=== PATIENT | male | born 1995 | race Caucasian/White ===

== ENCOUNTER 2018-11-06 12:53 | Emergency (ER) | payer BC, SELFPAY ==
[2018-11-06 12:53] VITALS: BP 145/95; PULSE 92; RESP 18; TEMP 37.1; O2SAT 98; BMI 25.1
--- NOTE | 2018-11-06 13:32 | ED.DCSUM_ITS ---
History of Present Illness Chief Complaint: Headache Detail of Chief Complaint: After blunt trauma Informant: Patient, Family Onset: - - Patient was vomiting. He struck his head on a cupboard. This occurred on Monday. Timing: Continuous Quality: Bilateral posterior head Location: Posterior head/posterior neck Current Severity: Mild Maximum Severity: Moderate Worsened by: Light, activity Relieved by: Nothing Associated Symptoms: Confusion, trouble sleeping, blurred vision, difficulty concentrating Narrative: Patient is a 22-year-old male who was sick this past week and. While vomiting he struck his head on a cupboard. He had no loss of conscious. He is not days. He has vomited once since. He does complain of thirst and dry mouth. He denies double vision or loss of vision. Denies ringing in his ears. He denies trouble with speech or swallowing. He denies cardiac respiratory symptoms. He denies rash. He denies paresthesia, anesthesia or motor weakness. He has no past history of concussion. He has no past history of vascular headache. Prior similar symptoms: No Recent Illness/Hospitalization: Yes - GI nausea and vomiting Past Medical History - Allergies and Home Meds Allergies/Adverse Reactions: Allergies No Known Allergies Allergy (Verified 11/06/18 12:55) Primary Care Physician: Emir Posada DO [Primary Care Provider] - Prior records reviewed: Yes - History of depression Lives: Spouse/ Significant Other Smoking Status: Never smoker Alcohol: None Review of Systems General: Reports: Malaise. Denies: Chills, Fever, Sweats - Is Eyes: Reports: Visual changes - bilaterally, Blurred Vision - bilaterally. Denies: Diplopia ENT: Denies: Bilateral ear pain, Rhinorrhea, Sore throat Cardiovascular: Denies: Chest pain, Palpitations Respiratory: Denies: Dyspnea, Cough, Dyspnea on exertion Gastrointestinal: Reports: Nausea, Vomiting. Denies: Abdominal pain, Diarrhea, Melena, Hematochezia Genitourinary: Denies: Dysuria, Hematuria, Frequency Musculoskeletal: Reports: Neck pain. Denies: Myalgias, Arthralgias, Back pain, Swelling Skin: Denies: Rash, Wounds Neurological: Reports: Headache. Denies: Weakness, Parasthesia, Numbness Psych: Reports: Depression Hematologic: Denies: Easy bruising, Easy bleeding Allergy: Denies: Uticaria Physical Exam Vital Signs/Narrative: Vital Signs Temp Pulse Resp BP Pulse Ox 11/06/18 12:53 98.7 F 92 18 145/95 H 98 Inital Vital Signs reviewed: Yes General: Well nourished, Well developed, No Acute Distress Head: Normocephalic, Trauma - There is a 2-3 mm abrasion forehead/hairline Eyes: Perrl, EOMI, - - There are no subconjunctival hemorrhages or conjunctival petechiae.. Negative for: Pale conjunctiva, Scleral icterus ENT: Moist mucous membranes, No rhinorrhea, TM's clear, - - There are no clinical findings of basal skull fracture. Neck: Supple, Nontender, No lymphadenopathy, No JVD Cardiovascular: Regular rate, Regular rhythm, No murmurs, Normal S1, Normal S2 Respiratory: No distress, CTA bilaterally, Chest nontender Back: Nontender, Normal Inspection Extremities: Nontender, No edema Skin: Normal color, No rash, Trauma - Abrasion forehead/hairline Neurological: Alert, Oriented x3, Cranial nerves II-XII grossly intact, Normal Strength, Normal Sensation, Normal DTR, Normal Gait Psychological: Normal affect, Normal Mood Diagnostic/Tx/Re-eval - Medical Decision Making Based on history, normal physical exam and specifically neuro exam per the [place] CT head rule and the [place] CT rule radiologic imaging is not indicated nor was it obtained. Patient was informed he would need to contact his primary care physician for FMLA form. ED Disposition - Plan for ED Patient: Disposition: Home or Assisted Living Diagnosis: Concussion without loss of consciousness, initial encounter, Nausea and vomiting in adult Instructions: ED Concussion Prescriptions: Ondansetron [Zofran Odt] 4 mg PO Q8H PRN PRN #10 tab PRN Reason: Nausea Referrals: Emir Posada, DO [Primary Care Provider] - As Needed Additional Instructions: You will need to contact Dr. Emir Posada to complete FMLA form for work.
== END 2018-11-06 13:51 | disposition home or self-care (01) ==
PROVIDERS: Emergency Provider Emergency Medicine
DX: S06.0X0A Concussion without loss of consciousness, initial encounter (principal); W22.8XXA Striking against or struck by other objects, initial encounter; Y93.9 Activity, unspecified; Y92.89 Other specified places as the place of occurrence of the external cause; Y99.9 Unspecified external cause status; R11.2 Nausea with vomiting, unspecified
CPT/HCPCS: 99282

== ENCOUNTER 2021-04-16 12:40 | Outpatient (RCR) | payer BC, SELFPAY | END 2021-05-21 23:59 | LOC: IMMUN 12:40 | PROVIDERS: Referring Provider Family Medicine; Visit Provider Family Medicine | DX: Z23 Encounter for immunization (principal) ==

== ENCOUNTER → 2023-01-26 | Outpatient (CLI) | payer BC, SELFPAY ==
[2023-01-26 17:46] LABS: Absolute Lymphocyte Count 2.16 X10^3/uL (0.83-4.51); Absolute Neutrophil Count 5.1 X10^3/uL (2.0-7.7); Basophil# 0.03 X10^3/uL; Basophil% 0.4 % (0-1); Eosinophil# 0.08 X10^3/uL; Hematocrit 49.6 % (40-54); Hemoglobin 16.3 g/dL (13.0-16.5); Lymphocyte # 2.16 X10^3/ul (0.83-4.51); Lymphocyte % 27.6 % (19-41); Mean Corp Hgb Conc 32.9 g/dL (32-36); Mean Corpuscular Hgb 30.2 pg (27.0-32.0); Mean Platelet Vol. 10.1 fl (6.2-12.0); Monocyte# 0.41 X10^3/uL; Monocyte% 5.2 % (0-10); NRBC Flagged by Analyzer 0 % (0-5); Neutrophil # 5.11 X10^3/uL (2.7-7.7); Neutrophil % 65.4 % (47-70); Platelet Count 239 K/mm3 (150-450); RBC Distribution Width SD 40.5 fl (35.1-43.9); Red Blood Count 5.39 M/mm3 (4.6-6.2); White Blood Count 7.8 K/mm3 (4.4-11.0)
[2023-01-26 18:30] LABS: ALB/GLOB Ratio 1.2 RATIO (0.9-2.4); AST(SGOT) 21 U/L (15-37); Alanine Aminotransfer ALT/SGPT 29 U/L (16-61); Albumin, Serum 4.6 g/dL (3.2-5.0); Alkaline Phosphatase 51 U/L (45-117); Anion Gap 7 (5-15); BUN 19 mg/dL (7-18); Calcium,Total 10.5 mg/dL (8.5-10.1); Chloride 99 mmol/L (98-107); Creatinine, Serum 1.12 mg/dL (0.70-1.30); EST Glomerular Filtration Rate 82 mL/min (>60); Est Glom Filt Rate - Afr Amer 100 mL/min (>60); Glucose 52 mg/dL (74-106); Lipase 27 U/L (13-75); Protein, Total 8.6 g/dL (6.4-8.2); Sodium Level 137 mmol/L (136-145)
== END | disposition home or self-care (01) ==
LOC: MFPLAB 16:59
PROVIDERS: Visit Provider Nurse Practitioner Family
DX: R10.11 Right upper quadrant pain (principal)
CPT/HCPCS: 36415; 80053; 83690; 85025

== ENCOUNTER → 2023-02-11 | Outpatient (CLI) | payer BC, SELFPAY ==
--- NOTE | 2023-02-11 07:45 | US_ITS ---
EXAM: US abdomen, limited, right upper quadrant. HISTORY: RUQ PAIN TECHNIQUE: US Abdomen RUQ (limited) COMPARISON: None. LIMITATIONS: None. LIVER Size: Normal. Right hepatic lobe measures 15.5 cm in length. Masses: None. Contour: Normal. Echotexture: Normal. Bile ducts: Normal. Portal veins: Normal. Normal hepatopedal flow. Hepatic veins are also patent. GALLBLADDER Size: Elongated gallbladder measuring 9.1 x 2.6 cm in diameter. Stones/sludge: None. Small gallbladder polyp is identified, measuring 4 x 3 x 2 mm in diameter. Wall thickness: Normal. Gallbladder wall measures 1.2 mm in thickness. Pericholecystic fluid: None. Sonographic Dominguez sign: Negative. EXTRAHEPATIC BILE DUCTS: Normal. Common bile duct measures 3.3 mm in diameter. RIGHT KIDNEY: Normal. Right kidney measures 10.3 cm in length. No hydronephrosis. ASCITES: None. PLEURAL EFFUSIONS: None. OTHER: Visualized pancreas is unremarkable. CONCLUSION: Small gallbladder polyp. Otherwise negative. No gallstones or biliary ductal dilatation. Electronically Signed: Kamar Feng MD at 20:32 EDT , US/Abdomen Limited IMPRESSION: undefined
== END | disposition home or self-care (01) ==
PROVIDERS: PCP Family Medicine; Referring Provider Nurse Practitioner Family; Visit Provider Nurse Practitioner Family
DX: R10.11 Right upper quadrant pain (principal)
CPT/HCPCS: 76705

== ENCOUNTER 2023-03-13 13:36 | Emergency (ER) | payer BC, SELFPAY ==
[2023-03-13 13:37] VITALS: BP 133/92; PULSE 73; RESP 18; TEMP 36.4; O2SAT 99; BMI 22.8
--- NOTE | 2023-03-13 14:20 | EKG12_ITS ---
Test Reason : CHEST PAIN Blood Pressure : / mmHG Vent. Rate : 070 BPM Atrial Rate : 070 BPM P-R Int : 142 ms QRS Dur : 092 ms QT Int : 388 ms P-R-T Axes : 076 075 069 degrees QTc Int : 419 ms Normal sinus rhythm Normal ECG Confirmed by MENDOZA BAE, DAVID ([id number]), scientific publications editor YURI OLSON ([id number]) on 03/15/2023 9:24:58 AM Referred By: Confirmed By:DAVID DONALDSON MD
--- NOTE | 2023-03-13 14:20 | ED.VIS.CHEST ---
HPI History of Present Illness Chief Complaint: Chest Pain Detail of Chief Complaint: Chest discomfort since last evening Informant: patient Narrative Narrative: Patient presents with chest discomfort started last evening about half an hour after taking his trazodone. Patient states has been taking trazodone for years. Patient states that he started feeling his heart was racing and he was going about 150 bpm. Patient continues to just not feel well throughout the day today and describe some chest discomfort and pressure. He describes numbness and tingling in both hands. He feels like he cannot get a good breath in. Patient does take Effexor for anxiety. He denies any increased stressors at home or work. Patient denies recent illness. He denies recent travel or surgery. His father did have a CABG at age 57. PFSH PFSH Medical History no medical history Home Medications ondansetron 4 mg disintegrating tablet 4 mg PO Q8H PRN PRN Nausea #10 tabs 11/06/18 [Rx Last Taken Unknown] trazodone 100 mg tablet 100 mg PO QHS 11/06/18 [History Last Taken Unknown] Allergy/AdvReac Type Severity Reaction Status Date / Time No Known Allergies Allergy Verified 03/13/23 13:37 Surgical History no surgical history Social History Smoking Status: Never smoker ROS ROS ED Review of Systems ROS Unobtainable: other Constitutional Constitutional ED: Reports lethargy; Denies chills, fever(s), sweats or weight loss Eyes Eyes: Denies blurry vision, change in vision or diplopia ENT ENT ED: Denies rhinorrhea or sore throat Cardiovascular Cardiovascular: Reports chest pain and racing heartbeat; Denies orthopnea Respiratory/Chest Respiratory/Chest: Reports dyspnea; Denies cough, dyspnea on exertion, orthopnea or sputum Gastrointestinal Gastrointestinal: Denies abdominal pain, diarrhea, nausea or vomiting Genitourinary Genitourinary ED: Denies dysuria, hematuria or urinary frequency Musculoskeletal Musculoskeletal: Denies arthralgias, back pain, myalgias or neck pain Integumentary Denies abscess, Abrasions or rash Neurologic Neurologic: Reports paresthesias; Denies headache(s) or weakness Psychiatric Psychiatric: Denies anxiety, depression or suicidal thoughts Endocrine Endocrinology: Denies polydipsia, polyphagia or polyuria Hematologic/Lymphatic Hematologic/Lymphatic: Denies easy bleeding, easy bruising or lymphadenopathy Allergic/Immunologic Allergic/Immunologic ED: Denies mouth swelling, tongue swelling or urticaria EXAM Physical Exam Const Vital Signs: 03/13/23 13:37 03/13/23 14:27 03/13/23 15:29 Temperature 97.5 F L Temperature Source Temporal Pulse Rate 73 Respiratory Rate 18 Blood Pressure 133/92 H 126/74 H Blood Pressure Mean 105 Pulse Ox 99 Oxygen Delivery Method Room Air Room Air Positive well nourished and well developed General Appearance ED: well developed and NAD HEENT Reports TM's clear and moist mucous membranes normocephalic and atraumatic; Negative for trauma or tenderness Tympanic Membrane ED: Yes TM's clear Eyes PERRL and EOMs intact bilaterally General Eye ED: Negative for pale conjunctiva or scleral icterus Neck no lymphadenopathy, supple and no JVD General: Negative for tenderness Chest Wall inspection of chest normal and palpation of chest normal Chest: Negative for tenderness Resp normal respiratory effort and clear to auscultation bilaterally Effort and Inspection: Negative for respiratory distress or pain with movement Auscultation: Negative for rhonchi, wheezes or diminished lung sounds Cardio regular rate, regular rhythm, S1 normal heart sound, S2 normal heart sound and no murmurs Peripheral Pulses: pulses 2+ throughout GI normal to inspection, nondistended, normoactive bowel sounds, soft to palpation, non-tender, non-distended and no masses Back/Spine no CVA tenderness and no thoracic nor lumbar tenderness Extremity normal to inspection General Extremety ED: Negative for edema General Extremity: Negative for edema Neuro oriented x3, CN's II-XII intact bilaterally, no sensory deficits noted and gait normal Sensorium / Orientation: awake, alert, oriented to person, oriented to place and oriented to time Motor Exam: strength 5/5 throughout and strength abnormal Psych mental status grossly normal Skin no rashes or lesions noted and no wounds Heart Score History: Slightly/Non-Suspicious ECG: Normal Age: </= 45 years Risk Factors: 1 or 2 Risk Factors Troponin: </= Normal Limit Score: 1 MDM MDM MDM Narrative Medical decision making narrative: Patient presents with persistent chest discomfort since last evening. He does have history of anxiety. There is some family history of heart disease and that his father apparently had a CABG at the age of 57. Patient himself is not had any heart history. In the differential would be acute coronary syndrome versus anxiety reaction versus PE or pneumothorax or other process. An IV line established on arrival. Patient was given baby aspirin. EKG obtained on arrival showed a sinus rhythm with a ventricular rate of 70 bpm with no acute ST segment changes. CBC with differential showed normal white count of 6.6 with a hemoglobin of 16 and platelet count of 204. Chemistries unremarkable. Troponin was normal at 3. D-dimer was negative at less than 0.27. Chest x-ray 1 view obtained interpreted by myself as no evidence of acute disease process such as pneumothorax or infiltrate or other acute disease process. No evidence of widened mediastinum. Patient has a heart score of 1. Clinically looks well. He did not want anything for anxiety here. Clinically given his complaint and paresthesias and sensation of feeling like he cannot take a deep breath I suspect more likely this is anxiety related. Patient advised to follow-up with his primary care physician within the next 3 to 5 days. Patient advised to return if worsening pain, increasing shortness of breath, or condition should worsen anyway. Lab Data Attestation: I reviewed the patient's lab results. Labs: Laboratory Results - last 24 hr 03/13/23 14:35 WBC 6.6 RBC 5.30 Hgb 16.1 Hct 47.7 MCV 90.0 MCH 30.4 MCHC 33.8 RDW Std Deviation 38.8 RDW Coeff of Marcelle 11.9 Plt Count 204 MPV 9.6 Immature Gran % (Auto) 0.200 Neut % (Auto) 71.5 H Lymph % (Auto) 20.2 Wheeler % (Auto) 7.0 Eos % (Auto) 0.8 Baso % (Auto) 0.3 Absolute Neuts (auto) 4.7 Absolute Lymphs (auto) 1.33 Nucleated RBC % 0 D-Dimer Quant (PE/DVT) < 0.27 L Sodium 137 Potassium 3.4 L Chloride 101 Carbon Dioxide 30.0 Anion Gap 6 BUN 9 Creatinine 0.93 Estim Creat Clear Calc 123.39 Est GFR (MDRD) Af Amer 124 Est GFR (MDRD) Non-Af 102 BUN/Creatinine Ratio 9.7 L Glucose 92 Calcium 9.7 Troponin I High Sens 3 Radiography Diagnostic Testing: Clinical Impression(s) from Imaging Studies Chest X-Ray 03/13/23 14:40 IMPRESSION: Normal x-ray examination of the chest. Electronically Signed: Henri Gibson MD at 14:59 EDT , 1 view chest x-ray obtained interpreted by myself no evidence of infiltrate or pneumothorax. No evidence of widened mediastinum. Radiology in agreement. EKG Initial EKG: Attestation: I personally reviewed and interpreted this EKG as follows: Comments: Sinus rhythm with a rate of 70 bpm with no acute ST segment changes Discharge Plan Triage Chief Complaint: Chest Pain ED Provider: Shirley Roger Dx/Rx/DC Orders Clinical Impression: Anxiety, Chest pain Instructions: ED Anxiety Reaction, ED Chest Pain, Uncertain Cause Prescriptions: No Action trazodone 100 MG tablet 100 mg PO QHS Patient Comments: TAKE 1 TABLET BY MOUTH AT BEDTIME ondansetron 4 MG tablet 4 mg PO Q8H PRN PRN (Reason: Nausea) Qty: 10 0RF Primary Care Provider: Isi Fraga Referrals: Isi Fraga DO [Primary Care Provider] - 3-5 Days Disposition Disposition: Home, Self Care Discharge Date/Time: 03/13/23 15:38
[2023-03-13] MEDS: 0.9% Normal Saline 1,000 ML 150 ML IV (14:37)
[2023-03-13] MEDS: Aspirin 81 MG TAB.CHEW 324 MG PO (14:37)
--- NOTE | 2023-03-13 14:40 | RAD_ITS ---
STUDY: X-RAY CHEST REASON FOR EXAM: Male, 27 years old. Chest pain TECHNIQUE: Single AP portable view of the chest. COMPARISON: None. FINDINGS: The lungs are clear and expanded. There is no demonstrated pleural abnormality. Normal size heart. Normal mediastinum and jeanne. Normal visualized pulmonary arteries. Normal visualized aortic arch and descending thoracic aorta. Normal visualized thoracic spine. Normal visualized ribs, clavicles, and shoulders. There is no demonstrated abnormality of the visualized soft tissue structures of the upper abdomen. RAD/Chest 1 View (Portable) IMPRESSION: Normal x-ray examination of the chest. Electronically Signed: Henri Gibson MD at 14:59 EDT ,
[2023-03-13 14:41] LABS: Absolute Lymphocyte Count 1.33 X10^3/uL (0.83-4.51); Absolute Neutrophil Count 4.7 X10^3/uL (2.0-7.7); Basophil# 0.02 X10^3/uL; Basophil% 0.3 % (0-1); Eosinophil# 0.05 X10^3/uL; Eosinophils% 0.8 % (0-5); Hematocrit 47.7 % (40-54); Hemoglobin 16.1 g/dL (13.0-16.5); Lymphocyte # 1.33 X10^3/ul (0.83-4.51); Lymphocyte % 20.2 % (19-41); Mean Corp Hgb Conc 33.8 g/dL (32-36); Mean Corpuscular Hgb 30.4 pg (27.0-32.0); Mean Platelet Vol. 9.6 fl (6.2-12.0); Monocyte# 0.46 X10^3/uL; NRBC Flagged by Analyzer 0 % (0-5); Neutrophil # 4.71 X10^3/uL (2.7-7.7); Neutrophil % 71.5 % (47-70); Platelet Count 204 K/mm3 (150-450); RBC Distribution Width CV 11.9 % (11.6-14.6); RBC Distribution Width SD 38.8 fl (35.1-43.9); White Blood Count 6.6 K/mm3 (4.4-11.0)
[2023-03-13 14:54] LABS: D-Dimer Quantitative (DVT/PE) < 0.27 FEU/ug/m (0.27-0.49)
[2023-03-13 14:58] LABS: Anion Gap 6 (5-15); BUN 9 mg/dL (7-18); BUN/Creat Ratio 9.7 RATIO (10-20); Calcium,Total 9.7 mg/dL (8.5-10.1); Chloride 101 mmol/L (98-107); Creatinine, Serum 0.93 mg/dL (0.70-1.30); EST Glomerular Filtration Rate 102 mL/min (>60); Est Glom Filt Rate - Afr Amer 124 mL/min (>60); Estimated Creatinine Clearance 123.39 ml/min; Glucose 92 mg/dL (74-106); Potassium 3.4 mmol/L (3.5-5.1); Sodium Level 137 mmol/L (136-145); Troponin-I HS (w/2H Reflex) 3 pg/mL (3.0-78.0)
[2023-03-13 15:29] VITALS: BP 126/74
[2023-03-13 16:38] LABS: Reflex Troponin-HS? (from REC) Y
== END 2023-03-13 15:38 | disposition home or self-care (01) ==
PROVIDERS: Emergency Provider Emergency Medicine; PCP Family Medicine; Visit Provider Emergency Medicine
DX: R07.9 Chest pain, unspecified (principal); F41.9 Anxiety disorder, unspecified; Z79.899 Other long term (current) drug therapy
CPT/HCPCS: 71045; 80048; 84484; 85025; 85379; 93005; 96360; 99285

== ENCOUNTER 2023-09-05 10:26 | Emergency (ER) | payer BC, SELFPAY ==
[2023-09-05 10:26] VITALS: BP 182/103; PULSE 107; RESP 16; TEMP 36; O2SAT 100; BMI 25.7
--- NOTE | 2023-09-05 11:15 | EX.ED.DYSGE1 ---
HPI History of Present Illness Chief Complaint: General Illness Narrative Narrative: 27-year-old male presenting with cough and congestion. He states he has a history of undiagnosed asthma but he is on Montelukast. Denies fevers or chills. Denies chest pain. He has mild dyspnea. States he left work today because he was feeling generally unwell, however he states he does not feel sick. Denies nausea or vomiting. Patient states has not tried anything else other than his Montelukast for cough. He does admit that he has Tessalon Perles at home and has not tried these. PFSH PFSH Home Medications ondansetron 4 mg disintegrating tablet 4 mg PO Q8H PRN PRN Nausea #10 tabs 11/06/18 [Rx Last Taken Unknown] trazodone 100 mg tablet 100 mg PO QHS 11/06/18 [History Last Taken Unknown] guaifenesin 1,200 mg tablet, extended release 12 hr 1,200 mg PO BID #20 tabs 09/05/23 [Rx Last Taken Unknown] Allergy/AdvReac Type Severity Reaction Status Date / Time No Known Allergies Allergy Verified 03/13/23 13:37 Social History Smoking Status: Never smoker ROS ROS ED Constitutional Constitutional ED: Denies chills, fever(s) or sweats Eyes Eyes: Denies blurry vision or change in vision ENT ENT ED: Denies ear pain or sore throat Cardiovascular Cardiovascular: Denies chest pain, palpitations or racing heartbeat Respiratory/Chest Respiratory/Chest: Reports cough and dyspnea; Denies sputum Gastrointestinal Gastrointestinal: Denies abdominal pain, constipation, diarrhea, nausea or vomiting Genitourinary Genitourinary ED: Denies dysuria, hematuria or urinary frequency Musculoskeletal Musculoskeletal: Denies arthralgias, myalgias or neck pain Integumentary Denies abscess, Abrasions or rash Neurologic Neurologic: Denies headache(s), paresthesias or weakness Psychiatric Psychiatric: Denies anxiety, depression, suicidal ideation or suicidal thoughts Endocrine Endocrinology: Denies polydipsia or polyuria EXAM Physical Exam Const Vital Signs: 09/05/23 10:26 09/05/23 10:26 Temperature 96.8 F L Temperature Source Temporal Pulse Rate 107 H Respiratory Rate 16 Respiratory Pattern Normal Blood Pressure 182/103 H Blood Pressure Mean 129 Pulse Ox 100 Oxygen Delivery Method Room Air Positive well nourished General Appearance ED: NAD; Negative for pallor HEENT Reports moist mucous membranes Eyes PERRL and EOMs intact bilaterally Neck no lymphadenopathy Chest Wall inspection of chest normal Resp normal respiratory effort and clear to auscultation bilaterally Auscultation: Negative for rales, rhonchi or wheezes Cardio regular rate and regular rhythm Extremity normal to inspection General Extremety ED: Yes edema General Extremity: edema Neuro oriented x3 and CN's II-XII intact bilaterally Sensorium / Orientation: alert Motor Exam: strength 5/5 throughout Psych mental status grossly normal Skin no rashes or lesions noted and no wounds General Skin Exam: Negative for jaundice or pallor MDM MDM MDM Narrative Medical decision making narrative: Patient presented with very mild symptoms of cough and congestion which started this morning. He states he has Tessalon Perles at home but did not try these. He is on Montelukast at home for unknown formally diagnosed asthma. He is not wheezing on examination. Does not albuterol. Well-appearing with normal exam. Will test him for COVID, influenza, RSV. Offered to give him Tessalon Perles but he states he had some at home and he does not want any here. Offered a chest x-ray but the patient declines. Offered work note for the patient but he states he took personal time. Viral testing was negative. Patient will be given Mucinex for home. He has Tessalon Perles and return precautions were discussed. Impression: 1. Cough Discharge Plan Triage Chief Complaint: General Illness ED Provider: Tim Zimmerman Dx/Rx/DC Orders Prescriptions: New guaifenesin 1,200 mg tablet extended release 12hr 1,200 mg PO BID Qty: 20 0RF No Action trazodone 100 MG tablet 100 mg PO QHS Patient Comments: TAKE 1 TABLET BY MOUTH AT BEDTIME ondansetron 4 MG tablet 4 mg PO Q8H PRN PRN (Reason: Nausea) Qty: 10 0RF Primary Care Provider: Isi Fraga Referrals: Isi Fraga, [Primary Care Provider] - Disposition Disposition: Home, Self Care Capacity Legal Orthopaedic Doctor Reflex Medical hold order details:: IF a medical hold is selected below, a suggested order for a MEDICAL HOLD will reflex upon signing the document. Next of kin: [place] law dictates a PRIORITY LIST for identifying legal decision-maker/legal next of kin in the following order (LNOK): 1st: The patient?s legal guardian, if any 2nd: The patient's spouse (if status is questionable, consult Risk Management) 3rd: The patient?s adult child(nemesio) (majority, if multiple children) 4th: The patient?s parents 5th: The patient?s adult siblings (majority, if multiple children siblings)
--- OUTSIDE RECORDS SUMMARY | 2023-09-05 12:30 | XMS RPT_ITS | CCD ---
Author Name Unknown Address [address] [place] [address] [address] [place] [address] Organization [facility] Care Team Providers Care Community Services Manager Name Role Phone Free, Text Entry Unavailable Unavailable Yanet White Unavailable Unavailable DR JAKOB SWEET DO Primary Care Physician [phone] Medications Current Medications Medication Drug Class(es) Dates Sig (Normalized) Sig (Original) escitalopram 10 mg oral tablet (1 source) Serotonin Reuptake Inhibitor Start: 06-03-2021 Lexapro 10 mg oral tablet Dose : 10 mg = 1 tab(s), Oral, qDay, # 90 tab(s), 1 Refill(s), Pharmacy: [facility]/pharmacy #[id number], 177, cm, 06/03/21 15:46:00 EDT, Height, kg, 06/03/21 15:46:00 EDT, Dosing Weight Start Date: 06/03/21 Status: Ordered herbal/nutritional product (1 source) Start: 09-10-2020 herbal/nutritional product 0 Refill(s) Start Date: 09/10/20 Status: Ordered nitrofurantoin, macrocrystals 25 mg / nitrofurantoin, monohydrate 75 mg oral capsule (1 source) Nitrofuran Antibacterial Start: 05-29-2021 End: 06-02-2021 take 1 capsule by mouth twice daily at mealtime Macrobid 100 mg oral capsule ; 1 cap(s) orally 2 times a day Quantity: 10 Refills: 0 Ordered: 29-May-2021 Yanet White Start: 29-May-2021 End: 02-Jun-2021 Generic Substitution Allowed Comments: Finish all this medication unless otherwise directed by prescriber.May discolor urine or feces.Take with food or milk. Completed/Discontinued Medications Medication Drug Class(es) Dates Sig (Normalized) Sig (Original) fluconazole 150 mg oral tablet (1 source) Azole Antifungal Start: 05-29-2021 End: 05-29-2021 take 1 tablet by mouth once Diflucan 150 mg oral tablet ; 1 tab(s) orally once Quantity: 1 Refills: 0 Ordered: 29-May-2021 Yanet White Start: 29-May-2021 End: 29-May-2021 Generic Substitution Allowed Comments: Do not take this drug if you are .Finish all this medication unless otherwise directed by prescriber. Problems Problem Classification Problem Date Documented Da te Episodic/Chronic Abdominal pain (1 source) Abdominal pain 02-19-2021 Episodic Alcohol-related disorders (1 source) Binge drinker 08-06-2020 Chronic Anxiety disorders (2 sources) Anxiety disorder; Translations: [Panic attack] 04-12-2019 Chronic Delirium, dementia, and amnestic and other cognitive disorders (1 source) Postconcussion syndrome 04-12-2019 Chronic Genitourinary symptoms and ill-defined conditions (4 sources) Urinary symptoms ; Translations: [Dysuria] 05-29-2021 Episodic Results Test Name Value Interpretation Reference Range Facil ity Vital Signs Date Time Vital Sign Value Performing Clinician Facility 05-29-2021 10:15-0400 Body height 177.8 cm Text Entry Free [facility] 05-29-2021 10:15-0400 Body temperature 97.16 [degF] Text Entry Free [facility] 05-29-2021 10:15-0400 Diastolic blood pressure 77 mm[Hg] Text Entry Free [facility] 05-29-2021 10:15-0400 Heart rate 73 /min Text Entry Free [facility] 05-29-2021 10:15-0400 Respiratory rate 16 /min Text Entry Free [facility] 05-29-2021 10:15-0400 SaO2% (BldA) [Mass fraction] 98 % Text Entry Free [facility] 05-29-2021 10:15-0400 Systolic blood pressure 123 mm[Hg] Text Entry Free [facility] Encounters Encounter Date Encounter Type Care Provider Facility Start: 06-03-2021 End: 06-07-[address] JAKOB SWEET DO [facility] Start: 05-29-2021 End: 05-29-2021 Emergency department patient visit Yanet White [facility] Start: 06-18-2018 End: 06-19-2018 Patient encounter procedure [facility] Procedures Date Procedure Procedure Detail Performing Clinician Adenoid excision DR JAKOB AVILEZ DO Tonsillectomy DR JAKOB DEY DO Immunizations Immunization Date Immunization Notes Care Provider Fa cility 07-22-2019 influenza virus vaccine, unspecified formulation DR JAKOB SWEET DO [facility] 04-11-2019 tetanus toxoid, redu debbie diphtheria toxoid, and acellular pertussis vaccine, adsorbed; Translations: [Boostrix (Tdap)] DR JAKOB SWEET DO [facility] Payers Date Payer Category Payer Policy ID Unknown ANTHEM\ANTHEM HMP Social History Date Type Detail Facility [facility] Tobacco smoking consumption unknown [facility] Start: 07-23-2019 Ex-smoker (finding) [facility] Former smokeless tobacco user, quit more than 30 days ago [facility] Sex Assigned At [facility] Clinical Note 06-06-2021 Note Date & Type Note Facility 06-06-2021 Note . MICRO - Microbiology PROCEDURE: Urine Culture [*1] SOURCE: Urine, Clean Catch BODY SITE: COLLECTED DATE/TIME: 06/03/2021 16:14 EDT RECEIVED DATE/TIME: 06/04/2021 14:32 EDT START DATE/TIME: 06/04/2021 14:32 EDT FREE TEXT SOURCE: FINAL REPORTS Final Report [] Verified Date/Time/Personnel: 06/06/2021 08:35 EDT No growth at 48 hours. PRELIMINARY REPORTS Preliminary Report [] Verified Date/Time/Personnel: 06/05/2021 11:10 EDT No growth to date Performing Locations *1: This test was performed at: [facility], [address] [place] [address], [id number] , [facility] ([place]) Evaluation + Plan note Radiology Note Date & Type Note Facility Evaluation + Plan note Future Appointments Appointment Date:07/06/2021 03:20:00 PM Scheduled Provider:JAKOB SWEET DO Location:[facility] Appointment Type:PC OV Future Scheduled TestsUS Abdomen Limited 04/17/21 [facility] Hospital course Narrative Note Date & Type Note Facility Hospital course Narrative No data available for this section [facility] Hospital Discharge instructions Note Date & Type Note Facility Hospital Discharge instructions No data available for this section [facility] Summary Purpose Family History No Family History Records FoundNo Family History Records FoundNo Family History Records Found Advance Directives No Advanced Directives Records FoundNo Advanced Directives Records FoundNo Advanced Directives Records Found Additional Source Comments (unrecognized sect ion and content) No Status Records FoundNo Status Records FoundNo Status Records Found INFORMATION SOURCE (unrecogn ized section and content) DATE CREATED AUTHOR AUTHOR'S ORGANIZ ATION 06/03/2021 [facility] DATE CREATED AUTHOR AUTHOR'S ORGANIZ ATION 06/08/2021 [facility] ([place]) <item> Privacy Markings (unrecogniz ed section and content) Section Author: Farzana Loya PROHIBITION ON REDISCLOSURE OF CONFIDENTIAL INFORMATION This notice accompanies a disclosure of information concerning a client made to you with the consent of such client. FOR RECORDS PERTAINING TO PATIENTS WHO ARE OR HAVE BEEN ENROLLED IN A CHEMICAL DEPENDENCY/SUBSTANCEABUSE PROGRAM, SOME INFORMATION MAY BE OMITTED. This clinical summary was aggregated from multiple sources. Caution should be exercised in using it in the provision of clinical care. This summary normalizes information from multiple sources, and as a consequence, information in this document may materially change the coding, format and clinical context of patient data. In addition, data may be omitted in some cases. CLINICAL DECISIONS SHOULD BE BASED ON THE PRIMARY CLINICAL RECORDS. [facility] [employer] [facility]. provides no warranty or guarantee of the accuracy or completeness of information in this document.
== END 2023-09-05 12:25 | disposition home or self-care (01) ==
PROVIDERS: Emergency Provider Student in an Organized Health Care Education/Training Program; PCP Family Medicine; Referring Provider Student in an Organized Health Care Education/Training Program; Visit Provider Student in an Organized Health Care Education/Training Program
DX: R05.9 Cough, unspecified (principal); R06.00 Dyspnea, unspecified
CPT/HCPCS: 87631; 99282

== ENCOUNTER 2025-03-25 14:21 | Outpatient (CLI) | payer BC, SELFPAY ==
--- NOTE | 2025-03-25 14:25 | RAD_ITS ---
PROCEDURE: FOOT MIN 3 VIEWS 03/25/2025 REASON FOR EXAM: TOE PAIN TECHNIQUE: FOOT MIN 3 VIEWS COMPARISON: None. FINDINGS: Bones: No acute bony abnormalities. Joints: No dislocation. Soft tissues: No soft tissue abnormalities. RAD/Foot min 3 Views IMPRESSION: No acute bony abnormalities. Reading Location: [id number]
== END 2025-03-25 23:59 | disposition home or self-care (01) ==
LOC: MTRAD 14:24
PROVIDERS: PCP Family Medicine; Referring Provider Family Medicine; Visit Provider Family Medicine
DX: S92.515A Nondisplaced fracture of proximal phalanx of left lesser toe(s), initial encounter for closed fracture (principal)
CPT/HCPCS: 73630

== ENCOUNTER → 2025-04-30 | Outpatient (CLI) | payer BC, SELFPAY ==
[2025-04-30 17:49] LABS: Hematocrit 48.0 % (40-54); Hemoglobin 16.0 g/dL (13.0-16.5); Immature Granulocytes Count 0.020 X10^3/uL (0.0-0.0); Mean Corp Hgb Conc 33.3 g/dL (32-36); Mean Corpuscular Volume 93.2 fL (80-94); Mean Platelet Vol. 10.4 fl (6.2-12.0); NRBC Flagged by Analyzer 0 % (0-5); Platelet Count 226 K/mm3 (150-450); RBC Distribution Width CV 12.6 % (11.6-14.6); RBC Distribution Width SD 43.6 fl (35.1-43.9); Red Blood Count 5.15 M/mm3 (4.6-6.2); White Blood Count 8.0 K/mm3 (4.4-11.0)
[2025-04-30 19:44] LABS: AST(SGOT) 26 U/L (<=37); Alanine Aminotransfer ALT/SGPT 20 U/L (<=46); Albumin, Serum 5.1 g/dL (3.5-5.0); Alkaline Phosphatase 51 U/L (40-129); Anion Gap 16 (5-15); BUN 23 mg/dL (4-19); BUN/Creat Ratio 28.1 RATIO (10-20); Calcium,Total 10.3 mg/dL (7.6-11.0); Carbon Dioxide 25.7 mmol/L (21.0-32.0); Chloride 97 mmol/L (98-108); Globulin 3.0 g/dL (2.2-4.2); Glucose 80 mg/dL (70-99); Potassium 4.5 mmol/L (3.3-5.1); Vitamin D,25 Hydroxy 34.7 ng/mL (30-100)
== END | disposition home or self-care (01) ==
LOC: MFPLAB 15:50
PROVIDERS: PCP Family Medicine; Visit Provider Family Medicine
DX: R10.9 Unspecified abdominal pain (principal); F10.10 Alcohol abuse, uncomplicated; Y90.9 Presence of alcohol in blood, level not specified
CPT/HCPCS: 36415; 80053; 82306; 84443; 85025